=== PATIENT | female | born 2000 | race Caucasian/White ===

== ENCOUNTER → 2020-04-01 | Outpatient (CLI) | payer BC ==
--- NOTE | 2020-04-01 09:45 | CT ---
EXAMINATION TYPE: CT sinus wo con DATE OF EXAM: 04/01/2020 COMPARISON: None HISTORY: Acute Sinusitis CT DLP: 628.7 mGycm. Automated Exposure Control for Dose Reduction was Utilized. TECHNIQUE: CT scan of the sinuses is performed without contrast, axial images are obtained, coronal r eformatted images are also reviewed. FINDINGS: The paranasal sinuses including the frontal, ethmoid, and maxillary sinuses bilaterally ar e well-aerated without abnormal opacification, sphenoid sinus shows a possible mucus retention cyst m easuring 8 mm posteriorly. The ostiomeatal complex is patent bilaterally on the coronal images. Ther e is some thickening of the turbinates on the left. Tracey bullosa present on the left. Charles cells present bilaterally. Visualized portion of mastoid air cells show no abnormal opacification. The globes are intact bilate rally. IMPRESSION: The sinuses are remarkable only for possible mucus retention cyst or polyp in the sphenoi d sinus, additional findings above.
== END | disposition home or self-care (01) ==
LOC: RADCTMAIN 07:15
PROVIDERS: ATTEND Family Medicine
DX: J34.89 Other specified disorders of nose and nasal sinuses (principal)
CPT/HCPCS: 70486

== ENCOUNTER 2021-07-19 14:55 | Emergency (ER) | payer BC ==
[2021-07-19 16:00] VITALS: RESP 18
[2021-07-19 16:34] LABS: Basophils % (A) 1 %; Eosinophils # (A) 0.1 k/uL (0-0.7); Eosinophils % (A) 1 %; HCT 46.3 % (34.0-46.0); HGB 14.9 gm/dL (11.4-16.0); Lymphocytes # (A) 1.2 k/uL (1.0-4.8); Lymphocytes % (A) 16 %; MCH 31.8 pg (25.0-35.0); MCHC 32.2 g/dL (31.0-37.0); MCV 98.8 fL (80.0-100.0); Mean Platelet Volume 9.6; Monocytes # (A) 0.4 k/uL (0-1.0); Monocytes % (A) 5 %; Neutrophils # (A) 5.8 k/uL (1.3-7.7); Neutrophils % (A) 76 %; Platelet Count 236 k/uL (150-450); RBC 4.68 m/uL (3.80-5.40); RDW 12.8 % (11.5-15.5); WBC 7.7 k/uL (3.8-10.6)
[2021-07-19 17:03] LABS: ALT 10 U/L (4-34); AST 23 U/L (14-36); African American GFR (CKD) >90 (>60 ml/min/1.73 sqM); Albumin 4.5 g/dL (3.5-5.0); Alkaline Phosphatase 67 U/L (38-126); Amylase 65 U/L (30-110); Anion Gap 10 mmol/L; Blood Urea Nitrogen 12 mg/dL (7-17); Calcium 9.4 mg/dL (8.4-10.2); Carbon Dioxide 26 mmol/L (22-30); Chloride 104 mmol/L (98-107); Glucose 85 mg/dL (74-99); Lipase 51 U/L (23-300); Non-African American GFR(CKD) >90 (>60 ml/min/1.73 sqM); Potassium 4.6 mmol/L (3.5-5.1); Sodium 140 mmol/L (137-145); Total Bilirubin 0.9 mg/dL (0.2-1.3); Total Protein 7.6 g/dL (6.3-8.2)
[2021-07-19 17:48] LABS: Appearance,Urine Cloudy (Clear); Bilirubin,Urine Negative (Negative); Blood,Urine Negative (Negative); Color,Urine Yellow; Glucose,Urine (UA) Negative (Negative); Ketones,Urine 4+ (Negative); Leukocyte Esterase,Urine Negative (Negative); Mucus,Urine Many /hpf; Nitrite,Urine Negative (Negative); Protein,Urine Trace (Negative); RBC,Urine 3 /hpf (0-5); Squamous Epithelial Cell,Urine 26 /hpf (0-4); WBC,Urine 1 /hpf (0-5)
[2021-07-19] MEDS ORDERED: ONDANSETRON 4 MG ODT STARTER PACK 2 TAB BTL PO STA (19:28)
--- NOTE | 2021-07-19 19:33 | ED ---
General Adult HPI - General Chief complaint: Abdominal Pain Stated complaint: Possible Appendicitis Time Seen by Provider: 07/19/21 19:05 Source: patient, family Mode of arrival: ambulatory Limitations: no limitations - History of Present Illness Initial comments: Patient is a previously healthy 21-year-old female presents to ER today for evaluation of 1 week of right-sided crampy abdominal pain and nausea. No change in bowel or bladder habits. Patient was seen at outside clinic where she had influenza COVID swabs and a urinalysis done the advised her to come to the hospital for further evaluation of possible appendicitis. - Related Data Home Medications Medication Instructions Recorded Confirmed Citalopram Hydrobromide [CeleXA] 10 mg PO DAILY 04/14/14 05/01/14 Ibuprofen [Motrin] 800 mg PO Q8HR PRN 05/01/14 05/01/14 l-Norgest/E.estradiol-E.estrad 0.15 mg PO DAILY 05/01/14 05/01/14 [Camrese 0.15-0.03-0.01 mg Tab] Previous Rx's Medication Instructions Recorded Ondansetron HCl [Zofran] 4 mg PO Q8HR #15 tab 05/01/14 Allergies Allergy/AdvReac Type Severity Reaction Status Date / Time No Known Allergies Allergy Verified 07/19/21 15:57 Review of Systems ROS Statement: Those systems with pertinent positive or pertinent negative responses have been documented in the HPI. ROS Other: All systems not noted in ROS Statement are negative. Past Medical History Past Medical History: No Reported History History of Any Multi-Drug Resistant Organisms: None Reported Past Surgical History: No Surgical Hx Reported Past Psychological History: Anxiety, Depression Smoking Status: Never smoker Past Alcohol Use History: None Reported Past Drug Use History: None Reported General Exam - General Exam Comments Initial Comments: Physical Exam GENERAL: Patient is well-developed and well-nourished. Patient is nontoxic and well-hydrated and is in no distress. HENT: Normocephalic, Atraumatic. EYES: PERRL, EOMI PULMONARY: Unlabored respirations. CARDIOVASCULAR: RRR Warm and well perfused extremities ABDOMEN: Soft, nondistended, no tenderness to palpation SKIN: No rashes or bruising : Deferred NEUROLOGIC: Alert and oriented Normal speech Normal gait MUSCULOSKELETAL: Moving all extremities with no apparent injury PSYCHIATRIC: No SI/HI Limitations: no limitations Course Vital Signs 12/20/21 12/20/21 15:57 19:59 Temperature 98.7 F 98.8 F Pulse Rate 102 H 97 Respiratory 18 18 Rate Blood Pressure 115/72 119/73 O2 Sat by Pulse 96 97 Oximetry Medical Decision Making - Medical Decision Making Patient was seen and evaluated, history is obtained from the patient and mother bedside previously healthy 21-year-old female with vague abdominal pain for 1 week duration she is afebrile no vomiting no diarrhea no dysuria Labs are obtained and there are no significant abnormalities noted. Discussed with the patient that my suspicion for appendicitis or surgical pathology with 1 week of symptoms and normal labs vital signs and exam is pretty minimal. Discussed risk and benefit of CT imaging and mom and patient are comfortable with plan to continue cautious observation. Patient be given some Zofran for nausea provided with a school note due to missing school for the previous week. Return parameters were discussed, discussed with the patient and the mother that we cannot absolutely rule out CAT scan Sopher symptoms persist or worsen she can return for reevaluation. Patient and mother agreeable with this and the patient was discharged home in stable condition. - Lab Data Result diagrams: 07/19/21 16:10 07/19/21 16:10 Lab Results 07/19/21 07/19/21 07/19/21 Range/Units 16:10 16:10 17:24 WBC 7.7 (3.8-10.6) k/uL RBC 4.68 (3.80-5.40) m/uL Hgb 14.9 (11.4-16.0) gm/dL Hct 46.3 H (34.0-46.0) % MCV 98.8 (80.0-100.0) fL MCH 31.8 (25.0-35.0) pg MCHC 32.2 (31.0-37.0) g/dL RDW 12.8 (11.5-15.5) % Plt Count 236 (150-450) k/uL MPV 9.6 Neutrophils % 76 % Lymphocytes % 16 % Monocytes % 5 % Eosinophils % 1 % Basophils % 1 % Neutrophils # 5.8 (1.3-7.7) k/uL Lymphocytes # 1.2 (1.0-4.8) k/uL Monocytes # 0.4 (0-1.0) k/uL Eosinophils # 0.1 (0-0.7) k/uL Basophils # 0.0 (0-0.2) k/uL Sodium 140 (137-145) mmol/L Potassium 4.6 (3.5-5.1) mmol/L Chloride 104 (98-107) mmol/L Carbon Dioxide 26 (22-30) mmol/L Anion Gap 10 mmol/L BUN 12 (7-17) mg/dL Creatinine 0.73 (0.52-1.04) mg/dL Est GFR (CKD-EPI)AfAm >90 (>60 ml/min/1.73 sqM) Est GFR (CKD-EPI)NonAf >90 (>60 ml/min/1.73 sqM) Glucose 85 (74-99) mg/dL Calcium 9.4 (8.4-10.2) mg/dL Total Bilirubin 0.9 (0.2-1.3) mg/dL AST 23 (14-36) U/L ALT 10 (4-34) U/L Alkaline Phosphatase 67 (38-126) U/L Total Protein 7.6 (6.3-8.2) g/dL Albumin 4.5 (3.5-5.0) g/dL Amylase 65 (30-110) U/L Lipase 51 (23-300) U/L Urine Color Yellow Urine Appearance Cloudy H (Clear) Urine pH 6.0 (5.0-8.0) Ur Specific [place] 1.030 (1.001-1.035) Urine Protein Trace H (Negative) Urine Glucose (UA) Negative (Negative) Urine Ketones 4+ H (Negative) Urine Blood Negative (Negative) Urine Nitrite Negative (Negative) Urine Bilirubin Negative (Negative) Urine Urobilinogen 4.0 (<2.0) mg/dL Ur Leukocyte Esterase Negative (Negative) Urine RBC 3 (0-5) /hpf Urine WBC 1 (0-5) /hpf Ur Squamous Epith Cells 26 H (0-4) /hpf Urine Mucus Many H (None) /hpf Urine HCG, Qual (Not Detectd) 07/19/21 Range/Units 17:24 WBC (3.8-10.6) k/uL RBC (3.80-5.40) m/uL Hgb (11.4-16.0) gm/dL Hct (34.0-46.0) % MCV (80.0-100.0) fL MCH (25.0-35.0) pg MCHC (31.0-37.0) g/dL RDW (11.5-15.5) % Plt Count (150-450) k/uL MPV Neutrophils % % Lymphocytes % % Monocytes % % Eosinophils % % Basophils % % Neutrophils # (1.3-7.7) k/uL Lymphocytes # (1.0-4.8) k/uL Monocytes # (0-1.0) k/uL Eosinophils # (0-0.7) k/uL Basophils # (0-0.2) k/uL Sodium (137-145) mmol/L Potassium (3.5-5.1) mmol/L Chloride (98-107) mmol/L Carbon Dioxide (22-30) mmol/L Anion Gap mmol/L BUN (7-17) mg/dL Creatinine (0.52-1.04) mg/dL Est GFR (CKD-EPI)AfAm (>60 ml/min/1.73 sqM) Est GFR (CKD-EPI)NonAf (>60 ml/min/1.73 sqM) Glucose (74-99) mg/dL Calcium (8.4-10.2) mg/dL Total Bilirubin (0.2-1.3) mg/dL AST (14-36) U/L ALT (4-34) U/L Alkaline Phosphatase (38-126) U/L Total Protein (6.3-8.2) g/dL Albumin (3.5-5.0) g/dL Amylase (30-110) U/L Lipase (23-300) U/L Urine Color Urine Appearance (Clear) Urine pH (5.0-8.0) Ur Specific [place] (1.001-1.035) Urine Protein (Negative) Urine Glucose (UA) (Negative) Urine Ketones (Negative) Urine Blood (Negative) Urine Nitrite (Negative) Urine Bilirubin (Negative) Urine Urobilinogen (<2.0) mg/dL Ur Leukocyte Esterase (Negative) Urine RBC (0-5) /hpf Urine WBC (0-5) /hpf Ur Squamous Epith Cells (0-4) /hpf Urine Mucus (None) /hpf Urine HCG, Qual Not Detected (Not Detectd) Disposition Clinical Impression: Viral syndrome Disposition: HOME SELF-CARE Condition: Stable Additional Instructions: I suspect you are suffering from a viral illness, you have normal vital signs and normal labs, at this time you do not suspect appendicitis however if you worsen or anything changes please return to the ER for re-evaluation Is patient prescribed a controlled substance at d/c from ED?: No Referrals: Maninder Macdonadl MD [Primary Care Provider] - 1-2 days
[2021-07-19 20:04] VITALS: BP 119/73; PULSE 97; TEMP 98.8
== END 2021-07-19 19:59 | disposition home or self-care (01) ==
LOC: EC 14:55
DX: B34.9 Viral infection, unspecified (principal); F41.9 Anxiety disorder, unspecified; F32.A Depression, unspecified
CPT/HCPCS: 36415; 80053; 82150; 83690; 85025; 81001; 81025; 99284; S0119

== ENCOUNTER 2024-10-15 19:38 | Outpatient (CLI) | payer OTHER ==
[2024-10-16 17:27] LABS: Urine Alcohol Negative (Negative); Urine Barbiturate Negative (Negative); Urine Cocaine Negative (Negative); Urine Methadone Negative (Negative); Urine Opiates Negative (Negative); Urine Phencyclidine Negative (Negative)
--- NOTE | 2024-10-23 15:50 | P.PCN ---
Description of Procedure: POLYSOMNOGRAPHY AND MSLT REPORT PROCEDURE(S)/DATE(S): Polysomnography 10/15/2024, multiple sleep latency test 10/16/2024. CLINICAL: Patient has been seen in the sleep center for evaluation of obstructive sleep apnea-hypopnea syndrome. Please see my consultation. Sleep study has been done for evaluation of patient breathing during the sleep. PROCEDURE: The standard montage for clinical polysomnography included the electroencephalogram, the electrooculogram, the mentalis surface marcus ctromyography and Lead II cardiography. The respiratory battery consisted of measurements of nasal/buccal air flow, pressure transducer measurements from nose, thoracic and/or abdominal effort and intercostal surface electromyography. Video monitoring has been done to check for any parasomnia events. Nocturnal oxyhemoglobin saturations were obtained by finger oximetry. Step-hester titration with positive airway pressure was utilized to control the respiratory events, if necessary. RESULTS: During the diagnostic sleep study sleep efficiency was normal 92.1%. Latency to sleep onset was slightly prolonged to 31.5 min. Sleep architecture showed stage NI was short 0.8%, Delta sleep was increased to 38.0%, REM sleep was normal 22.7%. Respiratory channel showed 0 obstructive apneas, 0 mixed apneas, 2 central apneas, 0 hypopneas with lowest oxygen level 94%. Total apnea hypopnea index was 0.3. Heart rate was in the range between 65 and 75, average 70. EMG showed 0 periodic limb movements per hour. Sleep latency test have been done on the following day, consisted from 5 naps. Patient fell asleep on all naps. Mean sleep latency was short 5.8 minutes. No sleep onset REM periods have been documented. IMPRESSIONS: 1. No significant respiratory abnormalities have been documented during the sleep study, normal oxygenation during sleep. 2. No significant periodic limb movements have been documented. 3. Multiple sleep latency test confirmed pathological sleepiness. Differential diagnosis include narcolepsy and idiopathic hypersomnia. Please see other impressions from consultation PLAN: 1. I will see patient for follow-up visit to discuss results of the test and following plan. 2. Sleep hygiene with regular time in bed for at least 7-1/2 hours. 3. Daytime naps were permitted. 4. No driving if feeling sleepiness. Thank you very much for allowing me to participate in the management of your patient. Sincerely, Panchito Cat, MD, PhD, FAASM. Diplomat of [place] [employer], Sleep Medicine Board by [employer] Sheep Herder [facility] [place] cc: Maninder Macdonald MD
== END 2024-10-16 17:16 | disposition home or self-care (01) ==
LOC: SLEEP 19:38
PROVIDERS: ATTEND Internal Medicine
DX: G47.33 Obstructive sleep apnea (adult) (pediatric) (principal)
CPT/HCPCS: 80306; 95805; 95810

== ENCOUNTER → 2024-10-24 | Outpatient (CLI) | payer OTHER ==
[2024-10-24 16:45] VITALS: BP 108/74; PULSE 78; RESP 16; TEMP 98.2
--- NOTE | 2024-10-24 17:34 | P.PROGSL ---
Subjective DATE: 10/24/2024 FOLLOW UP VISIT. Patient returned to sleep center for follow-up visit to discuss results of sleep studies and following plan. I discussed results of polysomnogram and multiple sleep latency test with patient and her mother in details. Polysomnogram did not show any abnormalities of respiration. Normal oxygenation during sleep. Lowest oxygen level was 94%. No periodic limb movements have been documented Multiple sleep latency test consisted from 5 naps. Patient fell asleep on all naps. Mean sleep latency is short 5.8 minutes and confirmed pathological sleepiness. No sleep onset REM periods have been documented. [place] sleepiness scale is in extremely high range of 20, patient continued to feel sleepiness during the day. MEDICATIONS:1. Bupropion once a day in the evening During physical exam: GENERAL: A pleasant patient without any distress. VITAL SIGNS: Please see below. HEENT: PERRLA, EOMI. NECK: Supple. No JVD. LUNGS: Clear to percussion and to auscultation. Good air exchange. No wheezing or rhonchi. HEART: S1, S2 regular. ABDOMEN: Soft and nontender. EXTREMITIES: No clubbing or cyanosis. BUSINESS ANALYTICS FACULTY MEMBER: Awake, alert, and oriented x3. No focal deficit. Impressions: 1. Pathological sleepiness confirmed by multiple sleep latency test. Mean sleep latency 5.8 minutes. No sleep onset rem periods documented. Differential diagnosis include narcolepsy type II and idiopathic hypersomnia. 2. No significant respiratory abnormalities have been documented during the sleep test. Normal oxygenation during sleep. 3. No periodic limb movements. 4. Anxiety. 5. History of headaches. Plan: 1. Patient will started treatment with Ritalin 5 mg from half to 1 tablet twice a day with interval 5 hours. 2. Sleep hygiene with regular time in bed for at least 8 hours. 3. Daytime naps permitted 4. Precautions related to driving. No driving if feel any sleepiness. Patient is aware about civil and criminal liability for unsafe driving, promised to follow recommendations. 5. Follow up visit in 1 months. Thank you very much for allowing me to participate in the management of your patient. Panchito Cat MD, PhD, FAASM. Diplomat of [place] [employer], Sleep Medicine Board by [place] [employer] General Internist [facility] [place] cc: Maninder Macdonald MD Objective - Vital Signs Vital Signs: Vital Signs Temp 98.2 F 03/27/25 16:42 Pulse 78 10/24/24 16:42 Resp 16 10/24/24 16:42 BP 108/74 10/24/24 16:42 Pulse Ox 95 10/24/24 16:42 FiO2 Home Medications: Home Medications Medication Instructions Recorded Confirmed Type Citalopram Hydrobromide [CeleXA] 10 mg PO DAILY 04/14/14 05/01/14 History Ibuprofen [Motrin] 800 mg PO Q8HR PRN 05/01/14 05/01/14 History Ondansetron HCl [Zofran] 4 mg PO Q8HR #15 tab 05/01/14 Rx l-Norgest/E.estradiol-E.estrad 0.15 mg PO DAILY 05/01/14 05/01/14 History [Camrese 0.15-0.03-0.01 mg Tab]
== END ==
LOC: 3 N SLEEP 16:09
PROVIDERS: ATTEND Internal Medicine
DX: G47.11 Idiopathic hypersomnia with long sleep time (principal); G47.419 Narcolepsy without cataplexy; F41.9 Anxiety disorder, unspecified; Z86.69 Personal history of other diseases of the nervous system and sense organs
CPT/HCPCS: 99212

== ENCOUNTER → 2024-12-12 | Outpatient (CLI) | payer OTHER ==
[2024-12-12 11:20] VITALS: BP 101/62; PULSE 85; RESP 12; TEMP 98.1
--- NOTE | 2024-12-12 11:35 | P.PROGSL ---
Subjective DATE: 12/12/2024 FOLLOW UP VISIT. Patient returned to sleep center for follow-up visit related to treatment of significant excessive daytime sleepiness secondary to narcolepsy versus idiopathic hypersomnia. Patient is on treatment with Ritalin 5 mg twice a day. With this regimen according to patient her alertness is on control. No side effects of medication. Patient does not drive. [place] sleepiness scale is 16, during previous visit it was 20. MEDICATIONS: Please see below During physical exam: GENERAL: A pleasant patient without any distress. VITAL SIGNS: Have been reviewed, please see below. HEENT: PERRLA, EOMI. NECK: Supple. No JVD. LUNGS: Clear to percussion and to auscultation. Good air exchange. No wheezing or rhonchi. HEART: S1, S2 regular. ABDOMEN: Soft and nontender. EXTREMITIES: No clubbing or cyanosis. LEGAL ADMINISTRATIVE ASSISTANT: Awake, alert, and oriented x3. No focal deficit. Impressions: 1. Pathological sleepiness confirmed by multiple sleep latency test with mean sleep latency 5.8 minutes. On 5 mg twice a day of Ritalin alertness improved. No side effects of medication. 2. History of anxiety. 3. History of headaches. Plan: 1. Patient will continue treatment with lowest doses of Ritalin 5 mg twice a day. 2. Sleep hygiene with regular time in bed for at least 8 hours. 3. Daytime naps permitted 4. Patient does not drive 5. Follow up visit in 4-6 months or earlier if patient has any problems. Thank you very much for allowing me to participate in the management of your patient. Panchito Cat MD, PhD, FAASM. Diplomat of [place] [employer], Sleep Medicine Board by [place] Fishing Line Winding Machine Operator [facility] [place] Objective - Vital Signs Vital Signs: Vital Signs Temp 98.1 F 12/12/24 11:18 Pulse 85 12/12/24 11:18 Resp 12 12/12/24 11:18 BP 101/62 12/12/24 11:18 Pulse Ox 97 12/12/24 11:18 FiO2 Intake & Output 12/11/24 12/12/24 12/12/24 18:59 06:59 18:59 Weight 67.132 kg Home Medications: Home Medications Medication Instructions Recorded Confirmed Type Citalopram Hydrobromide [CeleXA] 10 mg PO DAILY 04/14/14 12/12/24 History Ibuprofen [Motrin] 800 mg PO Q8HR PRN 05/01/14 12/12/24 History Ondansetron HCl [Zofran] 4 mg PO Q8HR #15 tab 05/01/14 12/12/24 Rx l-Norgest/E.estradiol-E.estrad 0.15 mg PO DAILY 05/01/14 12/12/24 History [Camrese 0.15-0.03-0.01 mg Tab] Methylphenidate HCl 5 mg PO BID 12/12/24 History [Methylphenidate ER]
== END ==
LOC: 3 N SLEEP 11:07
PROVIDERS: ATTEND Internal Medicine
DX: G47.30 Sleep apnea, unspecified (principal); F41.9 Anxiety disorder, unspecified; Z86.69 Personal history of other diseases of the nervous system and sense organs
CPT/HCPCS: 99212